=== PATIENT | female | born 1985 | race Caucasian/White ===

== ENCOUNTER 2019-03-08 15:42 | Emergency (ER) | payer SELFPAY ==
[2019-03-08 15:43] VITALS: BP 111/63; PULSE 103; RESP 19; TEMP 36.6; O2SAT 97; BMI 22.6
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
--- NOTE | 2019-03-08 16:19 | ED.DEP ---
ED Disposition - Plan for ED Patient: Disposition: Home or Assisted Living Instructions: BACK AND NECK PAIN, General Prescriptions: Naproxen [Naprosyn] 500 mg PO BID PRN PRN #20 tab PRN Reason: Pain Prescription Printed Referrals: Salina Stern [NON-STAFF] - 3-5 Days if not improving Additional Instructions: Motrin for pain and swelling. Warm bath to relax the muscles in your neck. All up with not improving.
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
[2019-03-08 16:53] VITALS: PULSE 73; RESP 16; O2SAT 100
--- NOTE | 2019-03-08 16:54 | ED.RN ---
REVIEWED D/C INSTRUCTIONS, FOLLOW UP CARE, PRESCRIPTION, AND S/S THAT WOULD WARRANT A RETURN TO THE ED WITH PT. PT VERBALIZED AN UNDERSTANDING AND DENIES FURTHER QUESTIONS FOR THIS RN. PT SKIN P/W/D, RESP EVEN AND UNLABORED, PT A&O X 3, NO DISTRESS NOTED. PT AMBULATED OUT OF ED, GAIT STEADY.
== END 2019-03-08 16:55 | disposition home or self-care (01) ==
PROVIDERS: Emergency Provider Emergency Medicine
DX: M54.2 Cervicalgia (principal); M79.641 Pain in right hand; M79.642 Pain in left hand; R20.0 Anesthesia of skin; Y04.0XXA Assault by unarmed brawl or fight, initial encounter; Y93.9 Activity, unspecified; Y92.9 Unspecified place or not applicable; F12.10 Cannabis abuse, uncomplicated; F15.10 Other stimulant abuse, uncomplicated; Z72.0 Tobacco use
CPT/HCPCS: 72040; 99282